=== PATIENT | male | born 1945 | race African-American/Black ===

== ENCOUNTER 2022-03-09 11:13 | Inpatient (IN) | payer MEDICARE, OTHER ==
[~2022-03-09] VITALS: Ht 182.9 cm; Wt 98.0 kg
[2022-03-09] MEDS ORDERED: SODIUM CHLORIDE 0.9% 1,000 ML IV ONE ×2 (11:30→18:30)
[2022-03-09 12:07] LABS: BASOPHILS % 0.1 % (0.0-2.0); EOSINOPHILS % 0.5 % (0.0-5.0); HEMATOCRIT. 48.2 % (42.0-52.0); HEMOGLOBIN. 16.1 g/dL (14.0-18.0); LYMPHOCYTES % 11.1 % (20.0-50.0); MEAN CORPUSCULAR HEMOGLOBIN 28.9 pg (28.0-32.0); MEAN CORPUSCULAR VOLUME 86.6 fL (80.0-94.0); MONOCYTES % 7.8 % (2.0-8.0); NEUTROPHILS % 80.5 % (40.0-76.0); PLATELET 227 x1000/uL (130-400); RED BLOOD CELL COUNT 5.57 mill/uL (4.7-6.1); RED CELL DISTRIBUTION WIDTH 16.3 % (11.6-14.6)
[2022-03-09 12:16] LABS: PROTHROMBIN TIME 11.1 sec (9.6-11.0)
[2022-03-09 13:40] LABS: CHLORIDE 97 mEq/L (98-107); CREATINE KINASE 2822 IU/L (39-308)
[2022-03-09] MEDS ORDERED: AZITHROMYCIN 500MG/250ML 250 ML IV ONE (15:00)
[2022-03-09] MEDS ORDERED: CEFTRIAXONE 1 G PREMIX 50 ML IV ONE (15:00)
[2022-03-09] MEDS ORDERED: IPRATROPIUM/ALBUTEROL 0.5-3(2.5)MG/3ML NEB NEB PRN (19:00)
[2022-03-09] MEDS ORDERED: SODIUM CHLORIDE 0.9% 1000ML BAG (SEPSIS BOLUS) IV ONE (19:00)
[2022-03-09] MEDS ORDERED: KETOROLAC 15MG/ML VIAL IV PRN (19:00)
[2022-03-09] MEDS ORDERED: ACETAMINOPHEN 325MG TABLET PO PRN ×2 (19:00)
[2022-03-09] MEDS ORDERED: DOCUSATE SODIUM 100MG CAPSULE PO PRN (19:00)
[2022-03-09] MEDS ORDERED: DEXTROSE 50% WATER 50ML SYRINGE IV PRN (19:00)
[2022-03-09] MEDS ORDERED: ONDANSETRON HCL 4MG/2ML INJ IV PRN (19:00)
[2022-03-09] MEDS ORDERED: NA PHOS,M-B/NA PHOS,DI-BA ENEMA 118ML PR PRN (19:00)
[2022-03-09] MEDS ORDERED: GUAIFENESIN 200MG/10ML SUGAR FREE UDC PO PRN (19:00)
[2022-03-09] MEDS: PIPERACILLIN/TAZ 3.375G PREMIX 50 ML IV SCH (20:00)
[2022-03-09 20:47] VITALS: BP 110/68
[2022-03-09] MEDS: BLOOD SUGAR DIAGNOSTIC STRIP TEST SCH (21:00)
[2022-03-09] MEDS: INSULIN LISPRO 100 UNITS/ML SUBCUT SCH (21:00)
[2022-03-09 21:17] LABS: T4 FREE 1.1 ng/dL (0.76-1.46)
[2022-03-09] MEDS ORDERED: VANCOMYCIN 1,750 MG in DEXT 5% WATER 500 ML IV SCH (23:30)
[2022-03-10] VITALS: BP 112/64
[2022-03-10 01:18] LABS: CREATINE KINASE MB FRACTION 17.1 ng/mL (0.5-3.6)
[2022-03-10] MEDS: ENOXAPARIN 40MG/0.4ML SYR SUBCUT SCH ×2 (03:50→20:16)
[2022-03-10] MEDS ORDERED: HYDR25TA MT ×2 (03:54→04:05)
[2022-03-10 04:00] VITALS: BP 107/71
[2022-03-10] MEDS ORDERED: NETA2.5D3 OP (04:05)
[2022-03-10] MEDS ORDERED: AMLO5TAB4 MT (04:05)
[2022-03-10] MEDS ORDERED: KEPP500 PO (04:05)
[2022-03-10] MEDS ORDERED: LATA7.5D OP (04:05)
[2022-03-10] MEDS ORDERED: ATOR40TA70 MT (04:05)
[2022-03-10] MEDS ORDERED: BRIM5DRO6 EACHEYE (04:05)
[2022-03-10] MEDS ORDERED: METF-414 MT (04:05)
[2022-03-10] MEDS ORDERED: LISI40TA13 MT (04:05)
[2022-03-10] MEDS ORDERED: *PATIENT'S OWN MEDICATION STORAGE XX SCH (05:45)
[2022-03-10] MEDS: PIPERACILLIN/TAZ 3.375G PREMIX 50 ML IV SCH ×2 (07:01→15:29)
[2022-03-10 07:08] LABS: BASOPHILS % 0.2 % (0.0-2.0); HEMOGLOBIN. 14.2 g/dL (14.0-18.0); LYMPHOCYTES % 10.6 % (20.0-50.0); MEAN CORPUSCULAR VOLUME 86.1 fL (80.0-94.0); MEAN PLATELET VOLUME 8.3 fl (7.4-10.4); MONOCYTES % 8.2 % (2.0-8.0); PLATELET 205 x1000/uL (130-400); RED BLOOD CELL COUNT 4.88 mill/uL (4.7-6.1); RED CELL DISTRIBUTION WIDTH 15.9 % (11.6-14.6)
[2022-03-10] MEDS: BLOOD SUGAR DIAGNOSTIC STRIP TEST SCH ×4 (07:18→21:35)
[2022-03-10 08:00] VITALS: BP 113/68
[2022-03-10 08:48] LABS: CREATINE KINASE MB FRACTION 12.3 ng/mL (0.5-3.6)
[2022-03-10] MEDS: INSULIN LISPRO 100 UNITS/ML SUBCUT SCH ×4 (09:52→21:00)
[2022-03-10 10:37] LABS: CHLORIDE 101 mEq/L (98-107)
[2022-03-10 11:00] LABS: VITAMIN B12 SERUM 775 pg/mL (211-911)
[2022-03-10 11:06] LABS: PHOSPHORUS 2.7 mg/dL (2.5-4.9)
[2022-03-10 12:00] VITALS: BP 114/71
[2022-03-10] MEDS: VANCOMYCIN 500MG PREMIX 100 ML IV SCH (12:32)
[2022-03-10] MEDS ORDERED: NALOXONE HCL 0.4MG/ML VIAL IV PRN (12:45)
[2022-03-10] MEDS: AZITHROMYCIN 500 MG in DEXT 5% WATER 250 ML IV SCH (15:29)
[2022-03-10 15:56] VITALS: BP 105/70
[2022-03-10] MEDS ORDERED: CEFTRIAXONE 1 G PREMIX 50 ML IV SCH (17:00)
[2022-03-10] MEDS ORDERED: AZITHROMYCIN 500 MG in DEXT 5% WATER 250 ML IV SCH (17:00)
[2022-03-10] MEDS: CEFTRIAXONE 1,000 MG in DEXTROSE 5% WATER 50 ML IV SCH (17:02)
[2022-03-10 20:00] VITALS: BP 112/71
[2022-03-10] MEDS: HYDROCODONE/ACETAMINOPHEN 10/325MG TABLET PO PRN (20:28)
[2022-03-10] MEDS: PIPERACILLIN/TAZOBACTAM 3.375G in DEXT 5% WATER 50ML IV SCH (22:14)
[2022-03-11] VITALS: BP 105/65
[2022-03-11] MEDS: VANCOMYCIN 500MG PREMIX 100 ML IV SCH ×2 (01:29→12:28)
[2022-03-11 02:18] LABS: *AMPHETAMINES SCREEN URINE NEGATIVE (NEGATIVE); *BARBITURATES SCREEN URINE NEGATIVE (NEGATIVE); *BENZODIAZEPINES SCREEN URINE NEGATIVE (NEGATIVE); *COCAINE SCREEN URINE NEGATIVE (NEGATIVE); CANNABINOID URINE SCREEN NEGATIVE (NEGATIVE); METHADONE URINE SCREEN NEGATIVE (NEGATIVE); OPIATES URINE SCREEN NEGATIVE (NEGATIVE); PHENCYCLIDINE URINE SCREEN NEGATIVE (NEGATIVE)
[2022-03-11 04:00] VITALS: BP 110/70
[2022-03-11] MEDS: PIPERACILLIN/TAZOBACTAM 3.375G in DEXT 5% WATER 50ML IV SCH (05:14)
[2022-03-11] MEDS: BLOOD SUGAR DIAGNOSTIC STRIP TEST SCH ×4 (06:08→21:20)
[2022-03-11 07:01] LABS: HEMOGLOBIN 13.8 g/dL (14.0-18.0); MEAN CORPUSCULAR VOLUME 86.2 fL (80.0-94.0); PLATELET 199 x1000/uL (130-400); RED BLOOD CELL COUNT 4.76 mill/uL (4.7-6.1); RED CELL DISTRIBUTION WIDTH 15.9 % (11.6-14.6)
[2022-03-11] MEDS: INSULIN LISPRO 100 UNITS/ML SUBCUT SCH ×4 (07:50→21:00)
[2022-03-11 08:00] VITALS: BP 108/64
[2022-03-11 08:57] LABS: CHLORIDE 102 mEq/L (98-107)
[2022-03-11 09:09] LABS: AMYLASE 186 IU/L (25-115)
[2022-03-11 12:00] VITALS: BP 105/69
[2022-03-11] MEDS: AZITHROMYCIN 500 MG in DEXT 5% WATER 250 ML IV SCH (16:18)
[2022-03-11] MEDS: CEFTRIAXONE 1,000 MG in DEXTROSE 5% WATER 50 ML IV SCH (16:18)
[2022-03-11 16:30] VITALS: BP 109/68
[2022-03-11] MEDS: ENOXAPARIN 40MG/0.4ML SYR SUBCUT SCH (19:53)
[2022-03-11 20:00] VITALS: BP 110/65
[2022-03-11] MEDS: HYDROCODONE/ACETAMINOPHEN 10/325MG TABLET PO PRN (21:25)
[2022-03-11] MEDS ORDERED: VANCOMYCIN 1,000 MG in DEXT 5% WATER 250 ML IV SCH (22:00)
[2022-03-12 04:00] VITALS: BP 108/69
[2022-03-12 07:16] LABS: HEMATOCRIT 39.7 % (42.0-52.0); HEMOGLOBIN 13.4 g/dL (14.0-18.0); MEAN CORPUSCULAR VOLUME 85.7 fL (80.0-94.0); PLATELET 209 x1000/uL (130-400); RED BLOOD CELL COUNT 4.63 mill/uL (4.7-6.1); RED CELL DISTRIBUTION WIDTH 16.1 % (11.6-14.6)
[2022-03-12 07:29] LABS: CHLORIDE 108 mEq/L (98-107)
[2022-03-12] MEDS: INSULIN LISPRO 100 UNITS/ML SUBCUT SCH ×4 (07:50→21:00)
[2022-03-12] MEDS: BLOOD SUGAR DIAGNOSTIC STRIP TEST SCH ×4 (07:58→21:00)
[2022-03-12 08:00] VITALS: BP 110/72
[2022-03-12 12:00] VITALS: BP 121/78
[2022-03-12] MEDS ORDERED: AZIT500T3 MT (12:12)
[2022-03-12] MEDS: HYDROCODONE/ACETAMINOPHEN 10/325MG TABLET PO PRN ×2 (12:29→21:53)
[2022-03-12] MEDS: AZITHROMYCIN 500 MG in DEXT 5% WATER 250 ML IV SCH (14:19)
[2022-03-12 16:00] VITALS: BP 139/79
[2022-03-12] MEDS: CEFTRIAXONE 1,000 MG in DEXTROSE 5% WATER 50 ML IV SCH (18:07)
[2022-03-12 20:00] VITALS: BP 115/68
[2022-03-12] MEDS: ENOXAPARIN 40MG/0.4ML SYR SUBCUT SCH (21:59)
[2022-03-13] VITALS: BP 110/75
[2022-03-13 04:00] VITALS: BP 125/71
[2022-03-13 06:18] VITALS: BP 110/71
[2022-03-13 08:00] VITALS: BP 127/74
[2022-03-13] MEDS ORDERED: AZITHROMYCIN 500 MG TABLET PO SCH (15:00)
== END 2022-03-13 11:18 | disposition home health service (06) | DRG 181 ==
LOC: EDSEX 11:13 → ER 11:13 → EDBEDREQ 15:16 → 6WST 18:05 → EDBEDREQTM 18:08 → EDBEDREQ 18:08
PROVIDERS: ADMIT Internal Medicine; ATTEND Internal Medicine
DX: C34.90 Malignant neoplasm of unspecified part of unspecified bronchus or lung (principal); C79.31 Secondary malignant neoplasm of brain; C79.51 Secondary malignant neoplasm of bone; E87.1 Hypo-osmolality and hyponatremia; M62.82 Rhabdomyolysis; M84.48XA Pathological fracture, other site, initial encounter for fracture; N17.9 Acute kidney failure, unspecified; I10 Essential (primary) hypertension; E11.9 Type 2 diabetes mellitus without complications; R77.8 Other specified abnormalities of plasma proteins; E78.5 Hyperlipidemia, unspecified; R74.01 Elevation of levels of liver transaminase levels; M47.816 Spondylosis without myelopathy or radiculopathy, lumbar region; I71.43 Infrarenal abdominal aortic aneurysm, without rupture; Z79.84 Long term (current) use of oral hypoglycemic drugs; Z79.899 Other long term (current) drug therapy
CPT/HCPCS: 36415; 70551; 71045; 72131; 74176; 80053; 80061; 80202; 80305; 82150; 82550; 82553; 82570; 82607; 82746; 82962; 83036; 83540; 83550; 83605; 83735; 83930; 83935; 84100; 84145; 84300; 84439; 84443; 84484; 84550; 85025; 85027; 93005; 93306; 93970; 97116; 97162; 97166; 99285; J0456; J0696; J1650; J1815; J1885; J2543; J3370; J7030; J7060